=== PATIENT | male | born 1980 | race Caucasian/White ===

== ENCOUNTER 2016-12-14 08:38 | Emergency (ER) | payer OTHER ==
--- NOTE | 2016-12-14 09:08 | XR ---
EXAMINATION TYPE: XR finger LT DATE OF EXAM: 12/14/2016 CLINICAL HISTORY: pain Left fourth digit. TECHNIQUE: 3 views of the left fourth digit are submitted. COMPARISON: None FINDINGS: Comminuted and displaced fracture involving the base and proximal portion of the distal pha lanx left fourth digit. Associated soft tissue injury with open fracture component seen. No evidence for radiopaque foreign body or additional fracture at this time. IMPRESSION: Comminuted and displaced open fracture left fourth digit.
[2016-12-14] MEDS ORDERED: ceFAZolin 1,000 MG VIAL IM STA (09:16)
[2016-12-14] MEDS ORDERED: DIPH,PERTUS(ACELL)TETVAC-LF 0.5 ML VIAL IM ONE (09:16)
--- NOTE | 2016-12-14 09:54 | ED ---
General Adult HPI - General Chief complaint: Wound/Laceration Stated complaint: [facility] Finger amputation Time Seen by Provider: 12/14/16 08:44 Source: patient, RN notes reviewed Mode of arrival: wheelchair Limitations: no limitations - History of Present Illness Initial comments: 36 yo female presents to the ER with cc of left finger laceration. Patient cut it with a tremor at work. Patient states that he is having pain to the finger. Patient states he does not have range motion of the distal finger. Patient denies any other injury from the incident. Patient states his pain is moderate there is no radiation.Patient denies any recent fever, chills, shortness of breath, chest pain, back pain, abdominal pain, nausea vomiting, numbness or tingling, dysuria or hematuria, constipation or diarrhea, headaches or visual changes, or any other current symptoms. - Related Data Previous Rx's Medication Instructions Recorded Cephalexin [Keflex] 500 mg PO Q6HR #40 cap 12/14/16 Allergies Allergy/AdvReac Type Severity Reaction Status Date / Time No Known Allergies Allergy Verified 12/14/16 08:43 Review of Systems ROS Statement: Those systems with pertinent positive or pertinent negative responses have been documented in the HPI. ROS Other: All systems not noted in ROS Statement are negative. Past Medical History Past Medical History: No Reported History History of Any Multi-Drug Resistant Organisms: None Reported Additional Past Surgical History / Comment(s): nose shopulder thumb Past Psychological History: No Psychological Hx Reported Smoking Status: Former smoker Past Alcohol Use History: None Reported Past Drug Use History: None Reported General Exam - General Exam Comments Initial Comments: General: The patient is awake and alert, in no distress, and does not appear acutely ill. Neck: The neck is supple, there is no tenderness. Cardiovascular: There is a regular rate and rhythm. No murmur, rub or gallop is appreciated. Respiratory: Lungs are clear to auscultation, respirations are non-labored, breath sounds are equal. No wheezes, stridor, rales, or rhonchi. Musculoskeletal: Patient does have decreased sensation distally to the tip of the left ring finger. There is a in total 3.5 cm laceration to the distal aspect of the left finger that is stellate in nature. Patient does not have range of motion at the DIP joint there is no strength testing at the DIP joint. Patient's range of motion the PIP joint of the ring finger at the left hand. Normal exam otherwise to the left hand besides the left ring finger. Neurological: CN II-XII intact, There are no obvious motor or sensory deficits. Coordination appears grossly intact. Speech is normal. Skin: Skin is warm and dry and no rashes or lesions are noted. Psychiatric: Normal mood and affect. Limitations: no limitations Course Vital Signs 12/14/16 08:40 Temperature 97 F L Pulse Rate 137 H Respiratory 24 Rate Blood Pressure 180/77 O2 Sat by Pulse 100 Oximetry Procedures - Procedures Initial comment: The skin was anesthetized with 1% lidocaine. The laceration was then cleansed with Betadine and irrigated with normal saline. The wound was inspected, and is an open fracture as well as compound injury to the left ring finger including the tendon is lacerated. There is a suspected nerve injury as well No foreign body was noted in the wound. A total of 9 skin sutures were placed utilizing 5- 0 nylon to 3.5; laceration to the left ring finger - Orthopedic Splinting/Casting Injury #1 Side: left Upper Extremity Injury Location: finger Upper Extremity Immobilizer: aluminum form splint Medical Decision Making - Medical Decision Making 36-year-old male presents for left ring finger laceration and open fracture. He was given antibiotics and was thoroughly irrigated. We did discuss that there is tenderness of nerve damage. We did discuss he could lose the tip of the finger as well as other possible outcomes. We did discuss he needs to have close follow-up with hand. He was paced in a splint after suture repair. We discussed return parameters and all his questions. They stated they understood and they are in agreement with plan. This time the patient will be discharged home. Disposition Clinical Impression: Laceration of left ring finger with tendon involvement, Fracture of phalanx of left ring finger, Open fracture Disposition: HOME SELF-CARE Condition: Stable Instructions: Laceration (ED), Care For Your Stitches (ED), Finger Fracture (ED ) Additional Instructions: Please use medication as discussed. Please follow up with family doctor if symptoms have not improved over the next two days. Please return to the emergency room if your symptoms increase or worsen or for any other concerns. Prescriptions: Cephalexin [Keflex] 500 mg PO Q6HR #40 cap Referrals: Samy Padilla DO [Doctor of Osteopathic Medicine] - 1-2 days Time of Disposition: 09:54
[2016-12-14 10:04] VITALS: BP 129/76; PULSE 98; RESP 16; TEMP 97.3
[2016-12-14] MEDS ORDERED: HYDROcodone/APAP 5-325MG 1 EACH TAB PO STA (10:37)
== END 2016-12-14 10:43 | disposition home or self-care (01) ==
LOC: EC 08:38
DX: S62.635B Displaced fracture of distal phalanx of left ring finger, initial encounter for open fracture (principal); S61.215A Laceration without foreign body of left ring finger without damage to nail, initial encounter; Z87.891 Personal history of nicotine dependence; W26.8XXA Contact with other sharp object(s), not elsewhere classified, initial encounter; Y99.0 Civilian activity done for income or pay; Y92.69 Other specified industrial and construction area as the place of occurrence of the external cause
CPT/HCPCS: 99283; 12002; 90471; 96372; 73140; 90715; J0690

== ENCOUNTER → 2016-12-16 | Outpatient (CLI) | payer SELFPAY ==
[2016-12-16 10:41] LABS: Basophils % (A) 0 %; CH 31.5; Eosinophils # (A) 0.4 k/uL (0-0.7); Eosinophils % (A) 5 %; HCT 44.6 % (39.0-53.0); HDW 2.21; HGB 14.7 gm/dL (13.0-17.5); Luc # (Auto) 0.16; Luc % (Auto) 2; Lymphocytes # (A) 1.9 k/uL (1.0-4.8); Lymphocytes % (A) 23 %; MCH 31.6 pg (25.0-35.0); MCV 95.8 fL (80.0-100.0); Mean Platelet Volume 6.9; Monocytes # (A) 0.6 k/uL (0-1.0); Monocytes % (A) 7 %; Neutrophils # (A) 5.4 k/uL (1.3-7.7); Neutrophils % (A) 64 %; RBC 4.65 m/uL (4.30-5.90); RDW 12.4 % (11.5-15.5); WBC 8.5 k/uL (3.8-10.6); WBC (Perox) 8.22
== END | disposition home or self-care (01) ==
LOC: LABWHC1 09:52
PROVIDERS: ATTEND Orthopaedic Surgery
DX: Z01.812 Encounter for preprocedural laboratory examination (principal); S62.635D Displaced fracture of distal phalanx of left ring finger, subsequent encounter for fracture with routine healing
CPT/HCPCS: 36415; 85025

== ENCOUNTER 2016-12-17 09:29 | Day surgery (SDC) | payer OTHER ==
[2016-12-16 09:28] VITALS: BMI 22.1
--- NOTE | 2016-12-17 07:32 | P.HPOR ---
History of Present Illness H&P Date: 12/17/16 Chief Complaint: Left ring finger fracture 36-year-old patient seen after injury to his left ring finger. I recommended surgical intervention. I discussed procedure, risks and complications. Patient was agreeable and consent was obtained. Past Medical History Past Medical History: No Reported History Additional Past Medical History / Comment(s): LEFT RING FINGER LACERATION AND FX. SUTURED, CURRENTLY BANDAGED History of Any Multi-Drug Resistant Organisms: None Reported Additional Past Surgical History / Comment(s): NASAL SX FOR FX, shoulder BONE SPURS, thumb Past Anesthesia/Blood Transfusion Reactions: No Reported Reaction Smoking Status: Former smoker - Past Family History Mother Family Medical History: No Reported History Medications and Allergies Allergies Allergy/AdvReac Type Severity Reaction Status Date / Time No Known Allergies Allergy Verified 12/16/16 09:21 Physical Examination Osteopathic Statement: *. No significant issues noted on an osteopathic structural exam other than those noted in the History and Physical/Consult. Evaluation of the left ring finger reveals a laceration along the distal phalanx area. It is well proximal nylon suture. There was good perfusion distally. There is no evidence for nailbed involvement. There is some decreased light touch noted on the ulnar side distally. The patient is able to slightly flex the DIP joint. There is good flexion of the PIP and MP joints. Results X-ray of the left ring finger: Displaced/comminuted distal phalanx fracture Assessment and Plan Plan: Assessment: Displaced/comminuted distal femoral fracture left ring finger with laceration Plan: Irrigation debridement left ring finger with closed reduction for cutaneous pinning distal phalanx left ring finger Time with Patient: Less than 30
[~2016-12-17 09:29] MED LIST: DEXAMETHASONE SOD PHOSPHATE 10 MG/ML 1 ML VIAL IV ONE; LACTATED RINGERS 1,000 ML IV SCH; MIDAZOLAM 2 MG/2 ML VIAL IV PRN; ONDANSETRON 4 MG/2 ML VIAL IVP ONE; ceFAZolin 1,000 MG in DEXTROSE/WATER 1 50ML.BAG IV ONE
[2016-12-17] MEDS ORDERED: LIDOCAINE 1% 20 ML VIAL (10MG/ML) FOR IV START INTRADERMA ONE (10:50)
[2016-12-17] MEDS ORDERED: MIDAZOLAM 2 MG/2 ML VIAL ONE (11:33)
[2016-12-17] MEDS ORDERED: PROPOFOL 10 MG/ML 20 ML VIAL IV ONE (11:33)
[2016-12-17] MEDS ORDERED: MORPHINE SULFATE 10 MG/ML SYRINGE ONE (11:33)
[2016-12-17] MEDS ORDERED: ceFAZolin 1,000 MG in SODIUM CHLORIDE 0.9% 1,000 ML IRRIGATION ONE (11:33)
[2016-12-17] MEDS ORDERED: LIDOCAINE 1% INJ 10MG/ML (20 ML MDV) ONE (11:33)
[2016-12-17] MEDS ORDERED: KETOROLAC 30 MG/ML 1 ML VIAL ONE (11:33)
[2016-12-17] MEDS ORDERED: fentaNYL (PF) 50 MCG/ML 2 ML AMP ONE (11:33)
[2016-12-17] MEDS ORDERED: SODIUM CHLORIDE 0.9% 50 ML with ceFAZolin 1,000 MG IV ONE ×2 (11:54)
[2016-12-17] MEDS ORDERED: BUPIVACAINE (PF) 0.25% 30 ML VIAL SQ ONE ×2 (11:54→12:26)
--- NOTE | 2016-12-17 12:38 | P.OP ---
Date of Procedure: 12/17/16 Preoperative Diagnosis: 1. Comminuted/displaced distal phalanx fracture left ring finger 2. Complex laceration distal phalanx area left ring finger Postoperative Diagnosis: Same Procedure(s) Performed: 1. Open reduction and percutaneous pinning distal fillings fracture left ring finger 2. Irrigation with debridement and secondary closure complex laceration left ring finger Implants: 0.35 K wire Anesthesia: BENI, local Surgeon: Samy Padilla Estimated Blood Loss (ml): 10 Pathology: none sent Condition: stable Disposition: PACU Indications for Procedure: 28-year-old patient seen with a comminuted displaced distal phalanx fracture left ring finger along with a complex laceration. I recommended reduction with percutaneous pinning as well as irrigation debridement and secondary closure of the laceration. Patient was agreeable and consent was obtained. Operative Findings: See description of procedure Description of Procedure: The patient was taken to the operative suite. Patient underwent a general anesthetic by the department of anesthesia. The left upper extremity was prepped and draped in the normal sterile orthopedic fashion. I removed the previous stitches and explored the complex laceration. The complex laceration of all of the distal talus area left ring finger and measured approximately overall length as it was stellate 4 cm. I explored the wound and removed some fragments of bone I encountered. I now sharply excised some macerated tissue with a #15 blade. I irrigated the wound out copiously with antibiotic irrigant. I explored the wound once again and there was no residual necrotic or abnormal-appearing tissue. I now introduced a 0.35 K wire through the distal portion of the distal fragments. Under direct visualization I introduced at into the more proximal aspect. The fracture was very comminuted but I felt we had a reasonable alignment. This was confirmed on AP and lateral intraoperative imaging. I didn't drive the K wire through the DIP joint to help with stability. I again confirmed adequate alignment under AP and lateral intraoperative imaging. Spot films were obtained to document this. I now repaired this complex laceration loosely with 4-0 nylon. There was good perfusion noted distally. The K wire was clipped and a Jurgan ball was attached. I performed a digital block with quarter percent plain Marcaine. I applied sterile dressings. No tourniquet was utilized. The patient was awakened and transferred to recovery stable condition.
[2016-12-17 12:47] VITALS: TEMP 98
--- NOTE | 2016-12-17 12:51 | XR ---
Left finger HISTORY: Open reduction internal fixation for posttraumatic fracture Limited intraoperative C-arm images document the procedure
[2016-12-17] MEDS: HYDROmorphone 1 MG/ML 1 ML SYRINGE IVP PRN ×4 (12:53→13:08)
--- NOTE | 2016-12-17 13:14 | FL ---
Fluoroscopy HISTORY: Fracture 32 seconds fluoroscopy time supplied to the referring clinician. 2 intraoperative C-arm images docum ent the procedure. See dictated report from orthopedic surgery.
[2016-12-17] MEDS: fentaNYL (PF) 50 MCG/ML 2 ML AMP IVP ONE ×2 (13:19→13:23)
[2016-12-17 13:29] VITALS: RESP 16
[2016-12-17] MEDS: HYDROmorphone 1 MG/ML 1 ML SYRINGE IVP ONE ×2 (13:30→13:35)
[2016-12-17] MEDS ORDERED: LACTATED RINGERS 1,000 ML IV ONE (13:50)
[2016-12-17] MEDS ORDERED: HYDROcodone/APAP 10-325MG 1 EACH TAB PO ONE (14:18)
[2016-12-17 14:40] VITALS: BP 114/62; PULSE 71
== END 2016-12-17 15:30 | disposition home or self-care (01) ==
LOC: OR 09:29
PROVIDERS: ATTEND Orthopaedic Surgery
DX: S62.635B Displaced fracture of distal phalanx of left ring finger, initial encounter for open fracture (principal); S61.215A Laceration without foreign body of left ring finger without damage to nail, initial encounter; X58.XXXA Exposure to other specified factors, initial encounter; Z87.891 Personal history of nicotine dependence; Z79.2 Long term (current) use of antibiotics; Z79.891 Long term (current) use of opiate analgesic
CPT/HCPCS: 73140; 26765; 11012; C1713; J2250; J1100; J2270; J2405; J0690 ×2; J2001; J3010; J1885; J1170; J2704

== ENCOUNTER 2023-11-25 11:38 | Inpatient (IN) | payer BC, OTHER ==
[2023-11-25 12:08] LABS: Basophils % (A) 1 %; Eosinophils # (A) 0.1 k/uL (0-0.7); Eosinophils % (A) 2 %; HCT 44.2 % (39.0-53.0); HGB 15.1 gm/dL (13.0-17.5); Lymphocytes # (A) 0.8 k/uL (1.0-4.8); Lymphocytes % (A) 19 %; MCH 35.3 pg (25.0-35.0); MCHC 34.1 g/dL (31.0-37.0); MCV 103.5 fL (80.0-100.0); Macrocytosis Slight; Mean Platelet Volume 7.7; Monocytes # (A) 0.3 k/uL (0-1.0); Monocytes % (A) 7 %; Neutrophils # (A) 2.8 k/uL (1.3-7.7); Neutrophils % (A) 70 %; Platelet Count 112 k/uL (150-450); RBC 4.27 m/uL (4.30-5.90); RDW 13.9 % (11.5-15.5)
[2023-11-25] MEDS: SODIUM CHLORIDE 0.9% 1,000 ML IV STA ×2 (12:10)
[2023-11-25] MEDS: LORazepam 2 MG/ML INJ IV PRN ×3 (12:10→18:17)
[2023-11-25] MEDS: ONDANSETRON 4 MG/2 ML VIAL IVP STA (12:11)
[2023-11-25] MEDS: PANTOPRAZOLE 40 MG/10 ML VIAL IVP STA (12:12)
[2023-11-25] MEDS: THIAMINE 100 MG/ML 2 ML VIAL IM STA (12:13)
[2023-11-25 12:22] LABS: ALT 162 U/L (4-49); AST 573 U/L (17-59); African American GFR (CKD) >90 (>60 ml/min/1.73 sqM); Albumin 4.3 g/dL (3.5-5.0); Alkaline Phosphatase 87 U/L (38-126); Amylase 83 U/L (30-110); Anion Gap 12 mmol/L; Blood Urea Nitrogen 9 mg/dL (9-20); Calcium 8.2 mg/dL (8.4-10.2); Carbon Dioxide 27 mmol/L (22-30); Chloride 100 mmol/L (98-107); Glucose 104 mg/dL (74-99); Lipase 1530 U/L (23-300); Non-African American GFR(CKD) >90 (>60 ml/min/1.73 sqM); Potassium 4.1 mmol/L (3.5-5.1); Sodium 139 mmol/L (137-145); Total Bilirubin 0.7 mg/dL (0.2-1.3); Total Protein 6.3 g/dL (6.3-8.2)
[2023-11-25 12:29] LABS: INR 0.9 (<1.2); Partial Thromboplastin Time 22.2 sec (22.0-30.0); Prothrombin Time 9.8 sec (10.0-12.5)
[2023-11-25 12:45] LABS: Alcohol 316 mg/dL
--- NOTE | 2023-11-25 13:54 | CT ---
EXAMINATION TYPE: CT abdomen pelvis w con CT DLP: 562.1 mGycm, Automated exposure control for dose reduction was used. DATE OF EXAM: 11/25/2023 1:45 PM COMPARISON: None CLINICAL INDICATION:Male, 43 years old with history of pancreatitis; Pancreatitis TECHNIQUE: Standard CT of the abdomen and pelvis following the administration of 100 cc of Isovue 3 00 IV contrast material. Coronal and sagittal reformats were performed. FINDINGS: LOWER CHEST: Unremarkable ABDOMEN LIVER: Diffusely hypoattenuating parenchyma. GALLBLADDER AND BILE DUCTS: The gallbladder is mildly distended without surrounding inflammatory hong ges. Intrahepatic and extrahepatic biliary ductal dilatation with the common bile duct measuring up t o 1.5 cm. There is tapering to the pancreatic head. PANCREAS: Unremarkable appearance without pancreatic ductal dilatation. No surrounding fluid collecti ons or fasting identified. Enhances homogeneously. SPLEEN: Unremarkable. ADRENAL GLANDS: Unremarkable. KIDNEYS AND URETERS: No evidence of hydronephrosis or renal calculus. The kidneys enhance symmetrical ly. Contrast is demonstrated within both collecting systems on the delayed phase. PELVIS BLADDER: Moderately distended. REPRODUCTIVE: Unremarkable. ABDOMEN & PELVIS STOMACH AND BOWEL: Stomach and duodenum are unremarkable. No focal bowel wall thickening or surround ing inflammatory changes. Moderate amount of stool present within the distal colon and rectum. The ap pendix is not definitely identified. No surrounding inflammatory changes within the right lower quadr ant. No evidence of bowel obstruction. PERITONEUM: No evidence of pneumoperitoneum or free fluid. VASCULATURE: No evidence of aortic aneurysm. Portal venous system is patent. MUSCULOSKELETAL: No acute osseous abnormalities LYMPH NODES: No gross evidence for lymphadenopathy. SOFT TISSUE/ABDOMINAL WALL: Unremarkable IMPRESSION: 1. Dilated intrahepatic and extrahepatic biliary duct dilatation with tapering to the pancreatic hea d. Correlation with obstructive biliary labs is recommended. Consider MRCP/ERCP for further evaluatio n. 2. No CT evidence for pancreatic inflammatory changes at this time. No surrounding organized fluid co llections. 3. Hepatic steatosis.
[2023-11-25 14:30] LABS: Appearance,Urine Clear (Clear); Bilirubin,Urine Negative (Negative); Blood,Urine Negative (Negative); Color,Urine Colorless; Glucose,Urine (UA) Negative (Negative); Ketones,Urine Negative (Negative); Leukocyte Esterase,Urine Negative (Negative); Nitrite,Urine Negative (Negative); PH, Urine 6.5 (5.0-8.0); Protein,Urine Trace (Negative); Specific Gravity,Urine 1.012 (1.001-1.035); Urobilinogen,Urine <2.0 mg/dL (<2.0)
--- NOTE | 2023-11-25 14:32 | ED ---
General Adult HPI - General Chief complaint: Alcohol Stated complaint: Detox Time Seen by Provider: 11/25/23 11:39 Source: patient, EMS, RN notes reviewed, old records reviewed Mode of arrival: EMS Limitations: no limitations - History of Present Illness Initial comments: Patient is a 43-year-old male who presents emergency department complaining of abdominal pain and alcohol withdrawals. Has a history of heavy alcohol abuse. Does have a history of DTs. Presented with withdrawal-like symptoms. Last drink earlier this morning. Does have a history of withdrawals with seizures. Attempted to go to [facility] however they sent him here for detox as the patient seem too sick for them to manage. Endorses some epigastric abdomin al discomfort, nausea, vomiting. Endorses withdrawal symptoms. Presents for further evaluation at this time. - Related Data Home Medications Medication Instructions Recorded Confirmed No Known Home Medications 11/25/23 11/25/23 Allergies Allergy/AdvReac Type Severity Reaction Status Date / Time No Known Allergies Allergy Verified 11/25/23 12:24 Review of Systems ROS Statement: Those systems with pertinent positive or pertinent negative responses have been documented in the HPI. Review of Systems: CONST: Denies fever EYES: Denies blurry vision ENT: Denies nasal congestion C/V: Denies Chest pain RESP: Denies shortness of breath GI: Endorses abdominal pain : Denies dysuria SKIN: Denies rash. MSK: Denies joint pain. NEURO: Denies headache ROS Other: All systems not noted in ROS Statement are negative. Past Medical History Past Medical History: No Reported History Additional Past Medical History / Comment(s): LEFT RING FINGER LACERATION AND FX. SUTURED, CURRENTLY BANDAGED History of Any Multi-Drug Resistant Organisms: None Reported Additional Past Surgical History / Comment(s): NASAL SX FOR FX, shoulder BONE SPURS, thumb Past Anesthesia/Blood Transfusion Reactions: No Reported Reaction Past Psychological History: No Psychological Hx Reported, Anxiety, Depression Smoking Status: Vaper Past Alcohol Use History: Abuse, Heavy Past Drug Use History: Marijuana - Past Family History Mother Family Medical History: No Reported History General Exam - General Exam Comments Initial Comments: General: Appears in no acute distress. HEAD: Normal with no signs of head trauma. EYES: PERRLA, EOMI, conjunctiva normal, no discharge. ENT: Hearing grossly intact, normal oropharynx. RESPIRATORY: Clear breath sounds bilaterally. No wheezes, rales, or rhonchi. C/V: Regular rate and rhythm. S1 and S2 auscultated, no edema, peripheral pulses 2+ and intact throughout ABD: Abdomen soft, nondistended. Tender to palpation epigastric region. No guarding or rebound tenderness. EXT: Normal range of motion, no obvious deformity SKIN: No rashes or lesions observed on exposed skin. NEURO: Alert and oriented x 4. Patient appears to be withdrawing from alcohol. Also appears acutely intoxicated with alcohol. Limitations: no limitations Course Vital Signs 11/25/23 11/25/23 11/25/23 11:41 12:40 14:11 Temperature 98.7 F Pulse Rate 101 H 80 75 Respiratory 18 18 16 Rate Blood Pressure 134/117 107/62 107/62 O2 Sat by Pulse 97 97 Oximetry Medical Decision Making - Medical Decision Making Was pt. sent in by a medical professional or institution (, PA, SCRAP CUTTER, urgent care, hospital, or snf...) When possible be specific @ -[facility] for [facility] Did you speak to anyone other than the patient for history (EMS, parent, family, police, friend...)? What history was obtained from this source @ -No Did you review nursing and triage notes (agree or disagree)? Why? @ -I reviewed and agree with nursing and triage notes Were old charts reviewed (outside hosp., previous admission, EMS record, old EKG, old radiological studies, urgent care reports/EKG's, snf records)? Report findings @ -No old charts were reviewed Differential Diagnosis (chest pain, altered mental status, abdominal pain women, abdominal pain men, vaginal bleeding, weakness, fever, dyspnea, syncope, headache, dizziness, GI bleed, back pain, seizure, CVA, palpatations, mental health, musculoskeletal)? @ -Alcohol withdrawals, dehydration, pancreatitis. This list is not all inclusive. EKG interpreted by me (3pts min.). @ -As above X-rays interpreted by me (1pt min.). @ -None done CT interpreted by me (1pt min.). @ -CT abdomen pelvis remarkable for dilated intrahepatic and extrahepatic biliary ducts with clinical correlation recommended. No evidence of obstructive biliary labs on lab work. No significant pancreatic inflammation. U/S interpreted by me (1pt. min.). @ -None done What testing was considered but not performed or refused? (CT, X-rays, U/S, labs)? Why? @ -None What meds were considered but not given or refused? Why? @ -None Did you discuss the management of the patient with other professionals (professionals i.e. , PA, SCRAP CUTTER, lab, RT, psych nurse, director of social work, ekg technician, teacher, sheriffs officer, ed case manager)? Give summary @ -Discussed with [facility] who accepted the admission. We did discuss the CT results and despite us not having GI present, as the patient has no obstructive biliary labs, they still accepted the patient at this time. Was smoking cessation discussed for >3mins.? @ -No Was critical care preformed (if so, how long)? @ -No Were there social determinants of health that impacted care today? How? (Homelessness, low income, unemployed, alcoholism, drug addiction, transportation, low edu. Level, literacy, decrease access to med. care, usp, rehab)? @ -No Was there de-escalation of care discussed even if they declined (Discuss DNR or withdrawal of care, Hospice)? DNR status @ -No What co-morbidities impacted this encounter? (DM, HTN, Smoking, COPD, CAD, Cancer, CVA, ARF, Chemo, Hep., AIDS, mental health diagnosis, sleep apnea, morbid obesity)? @ -None Was patient admitted / discharged? Hospital course, mention meds given and route, prescriptions, significant lab abnormalities, going to OR and other pertinent info. @ -Based on the patient's presentation and physical exam, presents for alcohol intoxication withdrawals. Initial CIWA was elevated was administered Ativan in addition IV fluids, Zofran, fluids, Protonix. We will obtain abdominal workup. Vital signs within acceptable limits. Labs remarkable for elevated lipase. Elevated alcohol level at 316. Remainder the workup relatively unremarkable. We did obtain CT imaging due to the elevated lipase which shows nonspecific findings of the dilated hepatic ducts however patient has a normal bilirubin as well as a normal alk phos. Patient does have slightly elevated ALT but elevated AST which could be all secondary to his alcohol abuse. On reevaluation I asked evaluate the patient. I did recommend admission. He was in agreement this plan. CIWA was improved at this time. I spoke with the admitting team, [facility] who after discussion with members of her group accepted the patient. We do not have GI but we did discuss the CT results as well as the absence of the obstructive biliary labs. They were in agreement with plan for admission to their service at this time. Will continue with IV fluids as well as CIWA protocol. Undiagnosed new problem with uncertain prognosis? @ -No Drug Therapy requiring intensive monitoring for toxicity (Heparin, Nitro, Insulin, Cardizem)? @ -No Were any procedures done? @ -No Diagnosis/symptom? @ -Alcohol withdrawals, alcohol intoxication, pancreatitis Acute, or Chronic, or Acute on Chronic? @ -Acute Uncomplicated (without systemic symptoms) or Complicated (systemic symptoms)? @ -Complicated Side effects of treatment? @ -No Exacerbation, Progression, or Severe Exacerbation? @ -No Poses a threat to life or bodily function? How? (Chest pain, [place], [place], pneumonia, PE, COPD, DKA, ARF, appy, cholecystitis, CVA, Diverticulitis, Homicidal, Suicidal, threat to staff... and all critical care pts) @ -Yes - Lab Data Result diagrams: 11/25/23 11:52 11/25/23 11:52 Lab Results 11/25/23 11/25/23 11/25/23 Range/Units 11:52 11:52 11:52 WBC 4.0 (3.8-10.6) k/uL RBC 4.27 L (4.30-5.90) m/uL Hgb 15.1 (13.0-17.5) gm/dL Hct 44.2 (39.0-53.0) % MCV 103.5 H (80.0-100.0) fL MCH 35.3 H (25.0-35.0) pg MCHC 34.1 (31.0-37.0) g/dL RDW 13.9 (11.5-15.5) % Plt Count 112 L (150-450) k/uL MPV 7.7 Neutrophils % 70 % Lymphocytes % 19 % Monocytes % 7 % Eosinophils % 2 % Basophils % 1 % Neutrophils # 2.8 (1.3-7.7) k/uL Lymphocytes # 0.8 L (1.0-4.8) k/uL Monocytes # 0.3 (0-1.0) k/uL Eosinophils # 0.1 (0-0.7) k/uL Basophils # 0.0 (0-0.2) k/uL Macrocytosis Slight PT 9.8 L (10.0-12.5) sec INR 0.9 (<1.2) APTT 22.2 (22.0-30.0) sec Sodium 139 (137-145) mmol/L Potassium 4.1 (3.5-5.1) mmol/L Chloride 100 (98-107) mmol/L Carbon Dioxide 27 (22-30) mmol/L Anion Gap 12 mmol/L BUN 9 (9-20) mg/dL Creatinine 0.53 L (0.66-1.25) mg/dL Est GFR (CKD-EPI)AfAm >90 (>60 ml/min/1.73 sqM) Est GFR (CKD-EPI)NonAf >90 (>60 ml/min/1.73 sqM) Glucose 104 H (74-99) mg/dL Calcium 8.2 L (8.4-10.2) mg/dL Total Bilirubin 0.7 (0.2-1.3) mg/dL AST 573 H (17-59) U/L ALT 162 H (4-49) U/L Alkaline Phosphatase 87 (38-126) U/L Total Protein 6.3 (6.3-8.2) g/dL Albumin 4.3 (3.5-5.0) g/dL Amylase 83 (30-110) U/L Lipase 1530 H (23-300) U/L Serum Alcohol 316 H* mg/dL - EKG Data -: EKG Interpreted by Me EKG Comments: 12-lead Electrocardiogram Interpretation Note EKG was reviewed and interpreted by myself. 12-lead ECG performed at 1151 is interpreted by me as revealing normal sinus rhythm at a rate of 99 beats per minute. Dailey is normal. AK interval is 131 ms, QRS duration is 92 ms, QTc is 407 ms.. There were no ST or T wave abnormalities to suggest myocardial ischemia or injury. R wave progression across the precordium was satisfactory. By my interpretation this EKG is non-diagnostic for acute ischemia. Disposition Clinical Impression: Alcoholic intoxication, Alcohol withdrawal syndrome, Pancreatitis Disposition: ADMITTED IP TO THIS HOSP Condition: Stable Referrals: Martínez Alva MD [Primary Care Provider] - 1-2 days Time of Disposition: 14:34
[2023-11-25] MEDS ORDERED: NALOXONE 0.4 MG/ML 1 ML VIAL IV PRN (14:34)
[2023-11-25] MEDS ORDERED: IBUPROFEN 400 MG TAB PO PRN (14:34)
[2023-11-25] MEDS ORDERED: ONDANSETRON 4 MG/2 ML VIAL IVP PRN (14:34)
[2023-11-25] MEDS ORDERED: LORazepam 0.5 MG TAB PO PRN (15:30)
[2023-11-25] MEDS ORDERED: PROCHLORPERAZINE INJ 10 MG/2 ML VIAL IVP PRN (15:32)
[2023-11-25] MEDS ORDERED: MORPHINE SULFATE 4 MG/ML SYRINGE IV PRN (15:46)
--- NOTE | 2023-11-25 15:58 | P.HPIM ---
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 He presented to the emergency department from [place] with a chief complaint of abdominal pain and alcohol intoxication with feeling of impending withdrawal. Patient reports abdominal pain to epigastric region accompanied by nausea and vomiting. He reports history of severe DTs and alcohol withdrawal seizures with last drink of alcohol being this morning, but states drinking at least 24 beers and a fifth of liquor daily every day for at least the last 4 months. Patient reports it has been over 4 months since the last time he went 24 hours without alcohol. Denies having any fevers, chills, diaphoresis, chest pain, palpitations, shortness of breath, cough or congestion, hematemesis, or experiencing any difficulties with or changes in his urinary or bowel function. Upon arrival to our facility, patient underwent evaluation in the emergency department. Vital signs upon arrival show blood pressure 134/117, heart rate 101, respiratory rate 18, temp 98.7 F, and SpO2 of 97% on room air. Labs were completed and reviewed. CBC showing macrocytosis with MCV of 103.5 and MCH of 35.3 and thrombocytopenia with platelet count of 112,000. Coagulation profile showing low PT of 9.8 otherwise normal findings. BMP unremarkable. Blood glucose 104. Liver profile showing bilirubin of 0.7, AST of 573, ALT of 162, and alkaline phosphatase of 87. Amylase normal findings at 83 and lipase was elevated at 1530. CT abdomen and p flaca was completed showing hepatic steatosis with dilated intrahepatic and extrahepatic biliary duct dilation with tapering into the pancreatic head and no CT evidence for pancreatic inflammatory changes with no surrounding organized fluid collections. Patient being admitted under our services for alcohol intoxication pending withdraw, acute alcoholic hepatitis, and acute alcoholic pancreatitis. Review of systems: Pertinent positives and negatives as discussed in HPI, a complete review of systems was performed and all other systems are negative. Physical exam: Vital signs reviewed and stable. General: Nontoxic, no distress and appears stated age. Derm: Skin warm and dry, normal coloration for ethnicity. Head: Atraumatic, normocephalic and symmetric. Eyes: EOMs intact, no lid lag, and anicteric sclera Mouth: no lip lesions, mucus membranes moist Cardiovascular: regular rate and rhythm with normal S1S2, no murmur, positive posterior tibial pulses bilaterally, and cap refill < 2 seconds. Lungs: Respirations even, regular, and unlabored on room air. Lungs CTA bilaterally, no rhonchi, no rales, no wheezing, and no accessory muscle usage. Abdominal: soft, tenderness reported upon palpation to epigastric region, no tenderness reported to right upper quadrant, no guarding, no appreciable organomegaly Ext: ROM intact. No gross muscle atrophy, no edema, no contractures Neuro: Speech clear, face symmetrical and CN II-XII grossly intact with no noted focal neuro deficits Psych: Alert and oriented to person, place, time, and situation. Appropriate and pleasant affect. Assessment and Plan of Care: Alcoholic hepatitis Alcohol intoxication in active alcoholic Acute alcoholic pancreatitis Hepatic steatosis with intrahepatic and extrahepatic biliary duct dilation tapering into the pancreatic head Substance abuse with reports of daily excessive kratom abuse Transaminitis, secondary to daily alcohol abuse Macrocytosis, secondary to daily alcohol abuse Thrombocytopenia, secondary to daily alcohol abuse -Order placed for monitoring of CIWA scores and patient to be medicated with Ativan 0.5 mg every 4 hours as needed for CIWA score of 4-5, Ativan 1 mg every 4 hours for CIWA score of 6-7, Ativan 2 mg every 3 hours CIWA score of 8-9, and Ativan 2 mg every 2 hours forr CIWA score of 10 or greater. -Order placed for MRCP -Continuous IV hydration with Lactated Ringer's at 125 cc/h. -Compazine 10 mg IVP every 6 hours as needed for nausea/vomiting -Toradol 15 mg IVP every 6 hours as needed for mild to moderate pain and morphine 4 mg every 4 hours as needed for severe pain. -Thiamine 100 mg daily, and Multivitamin daily, and Folate 1 mg daily -Seizure, fall, aspiration, and elopement precautions in place. -Urine drug screen -Continued close monitoring of electrolytes and replace as needed. -Repeat morning CMP to follow-up on elevated liver enzymes, monitor for improvement -Telemetry monitoring. Data and imaging reviewed: As stated above in HPI The patient is admitted with an anticipated greater than 2 midnight stay for evaluation of alcoholic hepatitis, alcoholic pancreatitis, and alcohol withdraw CODE STATUS: Full code DVT prophylaxis: Lovenox Anticipated discharge date: Pending clinical course Anticipated discharge place: Home/return to [place] Patient was seen independently by Nurse Practitioner. This document was prepared using [employer] dictation software. Please allow for errors in flame hardening machine setter while rare they do occur. I reviewed the documentation as provided by the MERRITT above, who is the original author of this note. I agree with the documented assessment and plan, with the following changes: none Past Medical History Past Medical History: No Reported History Additional Past Medical History / Comment(s): LEFT RING FINGER LACERATION AND FX. SUTURED, CURRENTLY BANDAGED History of Any Multi-Drug Resistant Organisms: None Reported Additional Past Surgical History / Comment(s): NASAL SX FOR FX, shoulder BONE SPURS, thumb Past Anesthesia/Blood Transfusion Reactions: No Reported Reaction Past Psychological History: No Psychological Hx Reported, Anxiety, Depression Smoking Status: Vaper Past Alcohol Use History: Abuse, Heavy Past Drug Use History: Marijuana - Past Family History Mother Family Medical History: No Reported History Medications and Allergies Home Medications Medication Instructions Recorded Confirmed Type No Known Home Medications 11/25/23 11/25/23 History Allergies Allergy/AdvReac Type Severity Reaction Status Date / Time No Known Allergies Allergy Verified 11/25/23 12:24 Physical Exam Vitals: Vital Signs Temp Pulse Resp BP Pulse Ox 11/25/23 14:11 75 16 107/62 11/25/23 12:40 80 18 107/62 97 11/25/23 11:41 98.7 F 101 H 18 134/117 97 Intake and Output 11/25/23 11/25/23 11/25/23 06:59 14:59 22:59 Other: Weight 61.235 kg Results CBC & Chem 7: 11/29/23 05:47 11/29/23 05:47 Labs: Abnormal Lab Results - Last 24 Hours (Table) 11/25/23 11/25/23 11/25/23 Range/Units 11:52 11:52 11:52 RBC 4.27 L (4.30-5.90) m/uL MCV 103.5 H (80.0-100.0) fL MCH 35.3 H (25.0-35.0) pg Plt Count 112 L (150-450) k/uL Lymphocytes # 0.8 L (1.0-4.8) k/uL PT 9.8 L (10.0-12.5) sec Creatinine (0.66-1.25) mg/dL Glucose (74-99) mg/dL Calcium (8.4-10.2) mg/dL AST (17-59) U/L ALT (4-49) U/L Lipase (23-300) U/L Urine Protein Trace H (Negative) Serum Alcohol mg/dL 11/25/23 Range/Units 11:52 RBC (4.30-5.90) m/uL MCV (80.0-100.0) fL MCH (25.0-35.0) pg Plt Count (150-450) k/uL Lymphocytes # (1.0-4.8) k/uL PT (10.0-12.5) sec Creatinine 0.53 L (0.66-1.25) mg/dL Glucose 104 H (74-99) mg/dL Calcium 8.2 L (8.4-10.2) mg/dL AST 573 H (17-59) U/L ALT 162 H (4-49) U/L Lipase 1530 H (23-300) U/L Urine Protein (Negative) Serum Alcohol 316 H* mg/dL
[2023-11-25] MEDS: LACTATED RINGERS 1,000 ML IV SCH (16:45)
[2023-11-26 03:52] LABS: Basophils % (A) 0 %; Eosinophils # (A) 0.2 k/uL (0-0.7); Eosinophils % (A) 6 %; HCT 40.4 % (39.0-53.0); HGB 12.8 gm/dL (13.0-17.5); Lymphocytes # (A) 1.1 k/uL (1.0-4.8); Lymphocytes % (A) 32 %; MCH 33.6 pg (25.0-35.0); MCHC 31.7 g/dL (31.0-37.0); Macrocytosis Moderate; Monocytes # (A) 0.2 k/uL (0-1.0); Monocytes % (A) 7 %; Neutrophils # (A) 1.9 k/uL (1.3-7.7); Neutrophils % (A) 53 %; RBC 3.81 m/uL (4.30-5.90); WBC 3.5 k/uL (3.8-10.6)
[2023-11-26 04:09] LABS: ALT 152 U/L (4-49); AST 380 U/L (17-59); African American GFR (CKD) >90 (>60 ml/min/1.73 sqM); Albumin 3.6 g/dL (3.5-5.0); Alkaline Phosphatase 73 U/L (38-126); Anion Gap 3 mmol/L; Blood Urea Nitrogen 9 mg/dL (9-20); Calcium 8.6 mg/dL (8.4-10.2); Carbon Dioxide 30 mmol/L (22-30); Chloride 100 mmol/L (98-107); Globulin 1.8 g/dL; Glucose 82 mg/dL (74-99); Magnesium 1.4 mg/dL (1.6-2.3); Non-African American GFR(CKD) >90 (>60 ml/min/1.73 sqM); Potassium 4.2 mmol/L (3.5-5.1); Sodium 133 mmol/L (137-145); Total Bilirubin 1.5 mg/dL (0.2-1.3); Total Protein 5.4 g/dL (6.3-8.2)
[2023-11-26] MEDS: MAGNESIUM SULFATE-D5W PMX 1 GM in DEXTROSE/WATER 1 100ML.BAG IVPB SCH ×2 (04:29→10:01)
[2023-11-26 04:54] LABS: Platelet Count 86 k/uL (150-450)
[2023-11-26] MEDS: PANTOPRAZOLE 40 MG/10 ML VIAL IV SCH (08:22)
[2023-11-26] MEDS: ENOXAPARIN 40 MG/0.4 ML SYRINGE SQ SCH (10:18)
[2023-11-26] MEDS: THIAMINE 100 MG TAB PO SCH (10:18)
[2023-11-26] MEDS: FOLIC ACID 1 MG TAB PO SCH (10:18)
[2023-11-26] MEDS: MULTIVITAMINS, THERA 1 EACH TAB PO SCH (10:18)
[2023-11-26 11:49] VITALS: BMI 20.5
--- NOTE | 2023-11-26 15:38 | P.PN ---
Subjective Progress Note Date: 11/26/23 Principal diagnosis: I reviewed the documentation as provided by the MERRITT above, who is the original author of this note. 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 He presented to the emergency department from [place] with a chief complaint of abdominal pain and alcohol intoxication with feeling of impending withdrawal. Patient reports abdominal pain to epigastric region accompanied by nausea and vomiting. He reports history of severe DTs and alcohol withdrawal seizures with last drink of alcohol being this morning, but states drinking at least 24 beers and a fifth of liquor daily every day for at least the last 4 months. Patient reports it has been over 4 months since the last time he went 24 hours without alcohol. Denies having any fevers, chills, diaphoresis, chest pain, palpitations, shortness of breath, cough or congestion, hematemesis, or experiencing any difficulties with or changes in his urinary or bowel function. Upon arrival to our facility, patient underwent evaluation in the emergency department. Vital signs upon arrival show blood pressure 134/117, heart rate 101, respiratory rate 18, temp 98.7 F, and SpO2 of 97% on room air. Labs were completed and reviewed. CBC showing macrocytosis with MCV of 103.5 and MCH of 35.3 and thrombocytopenia with platelet count of 112,000. Coagulation profile showing low PT of 9.8 otherwise normal findings. BMP unremarkable. Blood glucose 104. Liver profile showing bilirubin of 0.7, AST of 573, ALT of 162, and alkaline phosphatase of 87. Amylase normal findings at 83 and lipase was elevated at 1530. CT abdomen and pelvis was completed showing hepatic steatosis with dilated intrahepatic and extrahepatic biliary duct dilation with tapering into the pancreatic head and no CT evidence for pancreatic inflammatory changes with no surrounding organized fluid collections. Patient being admitted under our services for alcohol intoxication pending withdraw, acute alcoholic hepatitis, and acute alcoholic pancreatitis. Physical exam: Vital signs reviewed and stable. General: Nontoxic, no distress and appears stated age. Derm: Skin warm and dry, normal coloration for ethnicity. Head: Atraumatic, normocephalic and symmetric. Eyes: EOMs intact, no lid lag, and anicteric sclera Mouth: no lip lesions, mucus membranes moist Cardiovascular: regular rate and rhythm with normal S1S2, no murmur, positive posterior tibial pulses bilaterally, and cap refill < 2 seconds. Lungs: Respirations even, regular, and unlabored on room air. Lungs CTA bilaterally, no rhonchi, no rales, no wheezing, and no accessory muscle usage. Abdominal: soft, tenderness reported upon palpation to epigastric region, no tenderness reported to right upper quadrant, no guarding, no appreciable organomegaly Ext: ROM intact. No gross muscle atrophy, no edema, no contractures Neuro: Speech clear, face symmetrical and CN II-XII grossly intact with no noted focal neuro deficits. Mild resting tremors noted. Psych: Alert and oriented to person, place, time, and situation. Appropriate and pleasant affect. Assessment and Plan of Care: Alcoholic hepatitis Alcohol intoxication in active alcoholic Acute alcoholic pancreatitis Hepatic steatosis with intrahepatic and extrahepatic biliary duct dilation tapering into the pancreatic head Substance abuse with reports of daily excessive kratom abuse Hypomagnesemia Transaminitis, secondary to daily alcohol abuse Macrocytosis, secondary to daily alcohol abuse Pancytopenia, secondary to daily alcohol abuse -Continue monitoring of CIWA scores and patient to be medicated with Ativan 0.5 mg every 4 hours as needed for CIWA score of 4-5, Ativan 1 mg every 4 hours for CIWA score of 6-7, Ativan 2 mg every 3 hours CIWA score of 8-9, and Ativan 2 mg every 2 hours forr CIWA score of 10 or greater. Patient also started on scheduled Librium 25 mg 4 times daily in addition to CIWA protocol. -MRCP scheduled to be completed at 3 PM -Continuous IV hydration with Lactated Ringer's at 125 cc/h. -Compazine 10 mg IVP every 6 hours as needed for nausea/vomiting -Toradol 15 mg IVP every 6 hours as needed for mild to moderate pain and morphine 4 mg every 4 hours as needed for severe pain. -Thiamine 100 mg daily, and Multivitamin daily, and Folate 1 mg daily -Seizure, fall, aspiration, and elopement precautions in place. -Continued close monitoring of electrolytes and replace as needed. -Repeat morning CMP to follow-up on elevated liver enzymes, monitor for improvement -Telemetry monitoring. Data and imaging reviewed: Morning labs completed and reviewed. CBC showing pancytopenia with WBC count of 3.5, hemoglobin 12.8, and platelet count of 86. BMP showing mild hyponatre giovanny with sodium of 133. Magnesium was low at 1.4 and orders placed for replacement with 3 g magnesium sulfate IVPB. Liver profile showing hyperbilirubinemia with total bili of 1.5, AST of 380, ALT of 152, and alk phos of 73. Vital signs reviewed. Blood pressure 117/70, heart rate 59, respiratory rate 15, temp 98.0 F, and SpO2 of 93% on room air. Patient has had a total of 10 mg of Ativan over the last 24 hours for symptom triggered benzodiazepine management of alcohol withdraw. CODE STATUS: Full code DVT prophylaxis: Lovenox Anticipated discharge date: Pending clinical course Anticipated discharge place: Home/return to [place] Patient was seen independently by Nurse Practitioner. This document was prepared using [employer] dictation software. Please allow for errors in treasury consultant while rare they do occur. Objective - Vital Signs Vital signs: Vital Signs Temp 98.3 F 11/26/23 08:09 Pulse 65 11/26/23 08:09 Resp 14 11/26/23 08:09 BP 128/74 11/26/23 08:09 Pulse Ox 93 L 11/26/23 07:37 FiO2 Intake & Output 11/25/23 11/26/23 11/26/23 18:59 06:59 18:59 Intake Total 590 Output Total 400 Balance 190 Weight 61.235 kg Intake: Oral 590 Output: Urine 400 Other: Voiding Method Toilet Urinal # Voids 1 2 - Labs CBC & Chem 7: 11/29/23 05:47 11/29/23 05:47 Labs: Abnormal Lab Results - Last 24 Hours (Table) 11/25/23 11/25/23 11/25/23 Range/Units 11:52 11:52 11:52 WBC (3.8-10.6) k/uL RBC 4.27 L (4.30-5.90) m/uL Hgb (13.0-17.5) gm/dL MCV 103.5 H (80.0-100.0) fL MCH 35.3 H (25.0-35.0) pg Plt Count 112 L (150-450) k/uL Lymphocytes # 0.8 L (1.0-4.8) k/uL PT 9.8 L (10.0-12.5) sec Sodium (137-145) mmol/L Creatinine (0.66-1.25) mg/dL Glucose (74-99) mg/dL Calcium (8.4-10.2) mg/dL Magnesium (1.6-2.3) mg/dL Total Bilirubin (0.2-1.3) mg/dL AST (17-59) U/L ALT (4-49) U/L Total Protein (6.3-8.2) g/dL Lipase (23-300) U/L Urine Protein Trace H (Negative) Serum Alcohol mg/dL 11/25/23 11/26/23 11/26/23 Range/Units 11:52 03:15 03:15 WBC 3.5 L (3.8-10.6) k/uL RBC 3.81 L (4.30-5.90) m/uL Hgb 12.8 L (13.0-17.5) gm/dL MCV 106.0 H (80.0-100.0) fL MCH (25.0-35.0) pg Plt Count 86 L (150-450) k/uL Lymphocytes # (1.0-4.8) k/uL PT (10.0-12.5) sec Sodium 133 L (137-145) mmol/L Creatinine 0.53 L 0.55 L (0.66-1.25) mg/dL Glucose 104 H (74-99) mg/dL Calcium 8.2 L (8.4-10.2) mg/dL Magnesium 1.4 L (1.6-2.3) mg/dL Total Bilirubin 1.5 H (0.2-1.3) mg/dL AST 573 H 380 H (17-59) U/L ALT 162 H 152 H (4-49) U/L Total Protein 5.4 L (6.3-8.2) g/dL Lipase 1530 H (23-300) U/L Urine Protein (Negative) Serum Alcohol 316 H* mg/dL
[2023-11-26] MEDS: chlordiazePOXIDE 25 MG CAP PO SCH ×2 (16:44→22:06)
[2023-11-27] MEDS: KETOROLAC 15 MG/ML 1 ML VIAL IVP PRN (04:23)
--- NOTE | 2023-11-27 08:57 | MR ---
EXAMINATION TYPE: MR MRCP DATE OF EXAM: 11/26/2023 4:19 PM CLINICAL INDICATION:Male, 43 years old with history of concerns of intrahepatic extrahepatic dilati on; PHH, Pancreatitis, evaluate for intrahepatic and extrahepatic dilation. COMPARISON: 11/25/2023 TECHNIQUE: Multi planar, T2-weighted imaging with and without fat saturation and chemical shift imag ing was performed of the abdomen. Then, heavily T2 weighted imaging (half-Fourier acquisition single- shot turbo spin-echo) was utilized in order to study the biliary system. Maximum intensity projectio n images were reconstructed from the original data of the biliary tree. 3D images were created on [employer] work station. No Gadolinium given. FINDINGS: Lower Thorax: No evidence for acute process. MRCP: * The intrahepatic ducts dilated centrally. * The extrahepatic ducts are dilated. No filling defects identified. * The common hepatic duct measures 22 mm in size. * The common bile duct at the level of the pancreatic head measures 13 mm in size. * The pancreatic duct is normal. * The gallbladder appears distended. No evidence for cholelithiasis. Abdomen: Liver: No evidence for hepatic steatosis or cirrhosis. Pancreas: No ductal dilation. No evidence for solid mass. Spleen: Normal for size. Adrenal glands: Unremarkable. Kidneys: No evidence for obstructive uropathy. No suspicious renal masses. Stomach and Bowel: No evidence for bowel wall thickening or evidence for obstruction. Retroperitoneum/Peritoneum: No evidence of pneumoperitoneum or free fluid. Vasculature: No aortic aneurysm. Musculoskeletal: The osseous structures appear intact. Lymph Nodes: No gross evidence for lymphadenopathy. Abdominal wall: Unremarkable. IMPRESSION: Dilation of the extrahepatic and central intrahepatic biliary system without evidence for filling def ect to suggest choledocholithiasis. Consider ERCP to rule out ampullary lesion.
[2023-11-27 10:22] LABS: HCT 41.9 % (39.6-50.0); HGB 14.6 g/dL (13.0-17.0); MCH 34.4 pg (27.0-32.0); MCHC 34.8 g/dL (32.0-37.0); MCV 98.8 FL (80.0-97.0); Mean Platelet Volume 11.4 FL (9.5-12.2); NRBC Per 100 WBC 0 X 10*3/uL (0.00-0.01); Platelet Count 93 X 10*3/uL (140-440); RBC 4.24 X 10*6/uL (4.40-5.60); WBC 3.99 X 10*3/uL (4.50-10.00)
[2023-11-27 10:28] LABS: ALT 121 U/L (10-49); AST 134 U/L (14-35); Albumin 4.2 g/dL (3.8-4.9); Albumin/Globulin Ratio 2.62 Ratio (1.60-3.17); Alkaline Phosphatase 96 U/L (41-126); Blood Urea Nitrogen 4.9 mg/dL (9.0-27.0); Calcium 8.9 mg/dL (8.7-10.3); Chloride 101 mmol/L (96-109); Globulin 1.6 g/dL (1.6-3.3); Glucose 110 mg/dL (70-110); Magnesium 1.9 mg/dL (1.5-2.4); Potassium 3.8 mmol/L (3.5-5.5); Sodium 139 mmol/L (135-145); Total Protein 5.8 g/dL (6.2-8.2)
--- NOTE | 2023-11-27 15:57 | P.PN ---
Subjective Progress Note Date: 11/27/23 Principal diagnosis: I reviewed the documentation as provided by the MERRITT above, who is the original author of this note. 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 He presented to the emergency department from [place] with a chief complaint of abdominal pain, nausea, and vomiting and alcohol intoxication with feeling of impending withdrawal. Upon arrival to our facility, patient underwent evaluation in the emergency department. Vital signs upon arrival show blood pressure 134/117, heart rate 101, respiratory rate 18, temp 98.7 F, and SpO2 of 97% on room air. Labs were completed and reviewed. CBC showing macrocytosis with MCV of 103.5 and MCH of 35.3 and thrombocytopenia with platelet count of 112,000. Coagulation profile showing low PT of 9.8 otherwise normal findings. BMP unremarkable. Blood glucose 104. Liver profile showing bilirubin of 0.7, AST of 573, ALT of 162, and alkaline phosphatase of 87. Amylase normal findings at 83 and lipase was elevated at 1530. CT abdomen and pelvis was completed showing hepatic steatosis with dilated intrahepatic and extrahepatic biliary duct dilation with tapering into the pancreatic head and no CT evidence for pancreatic inflammatory changes with no surrounding organized fluid collections. Patient was admitted under our services for alcohol intoxication pending withdraw, acute alcoholic hepatitis, and acute alcoholic pancreatitis. MRCP was completed showing dilation of the extrahepatic and central intrahepatic biliary system without evidence for rhoda ling defect to suggest choledocholithiasis. Physical exam: Patient seen and fully evaluated at bedside this morning he reports pain is improved but remains slightly tender to epigastric region upon palpation. He is no longer having any episodes of nausea or vomiting. Vital signs reviewed and stable. General: Nontoxic, no distress and appears stated age. Derm: Skin warm and dry, normal coloration for ethnicity. Head: Atraumatic, normocephalic and symmetric. Eyes: EOMs intact, no lid lag, and anicteric sclera Mouth: no lip lesions, mucus membranes moist Cardiovascular: regular rate and rhythm with normal S1S2, no murmur, positive posterior tibial pulses bilaterally, and cap refill < 2 seconds. Lungs: Respirations even, regular, and unlabored on room air. Lungs CTA bilaterally, no rhonchi, no rales, no wheezing, and no accessory muscle usage. Abdominal: soft, tenderness reported upon palpation to epigastric region, no tenderness reported to right upper quadrant, no guarding, no appreciable organomegaly Ext: ROM intact. No gross muscle atrophy, no edema, no contractures Neuro: Speech clear, face symmetrical and CN II-XII grossly intact with no noted focal neuro deficits. Mild resting tremors noted. Psych: Alert and oriented to person, place, time, and situation. Appropriate and pleasant affect. Assessment and Plan of Care: Alcoholic hepatitis Alcohol intoxication in active alcoholic Acute alcoholic pancreatitis Hepatic steatosis with intrahepatic and extrahepatic biliary duct dilation tapering into the pancreatic head Substance abuse with reports of daily excessive kratom abuse Hypomagnesemia Transaminitis, secondary to daily alcohol abuse Macrocytosis, secondary to daily alcohol abuse Pancytopenia, secondary to daily alcohol abuse -Continue monitoring of CIWA scores and patient to be medicated with Ativan 0.5 mg every 4 hours as needed for CIWA score of 4-5, Ativan 1 mg every 4 hours for CIWA score of 6-7, Ativan 2 mg every 3 hours CIWA score of 8-9, and Ativan 2 mg every 2 hours forr CIWA score of 10 or greater. Patient also started on scheduled Librium 25 mg 4 times daily in addition to CIWA protocol. -MRCP showing dilation of the extrahepatic and central intrahepatic biliary system without evidence for filling defect to suggest choledocholithiasis. -Continuous IV hydration with Lactated Ringer's at 125 cc/h. -Compazine 10 mg IVP every 6 hours as needed for nausea/vomiting -Toradol 15 mg IVP every 6 hours as needed for mild to moderate pain and morphine 4 mg every 4 hours as needed for severe pain. -Thiamine 100 mg daily, Multivitamin daily, and Folate 1 mg daily -Seizure, fall, aspiration, and elopement precautions in place. -Continued close monitoring of electrolytes and replace as needed. -Repeat morning CMP to follow-up on elevated liver enzymes, monitor for im provement -Telemetry monitoring. Data and imaging reviewed: Morning labs completed and reviewed. CBC showing WBC count of 3.99 and platelet count of 93. BMP unremarkable. Magnesium 1.9. Liver profile showing improvement with total bili 1.0, AST of 134, ALT of 121, and alkaline phosphatase of 96. Vital signs reviewed. Blood pressure 132/69, heart rate 53, respiratory rate 15, temp 97.9 F, and SpO2 of 99% on room air. MRCP showing dilation of the extrahepatic and central intrahepatic biliary system without evidence for filling defect to suggest choledocholithiasis. CODE STATUS: Full code DVT prophylaxis: Lovenox Anticipated discharge date: Pending clinical course Anticipated discharge place: Home/return to [place] Patient was seen independently by Nurse Practitioner. This document was prepared using [employer] dictation software. Please allow for errors in principal technologist while rare they do occur. Objective - Vital Signs Vital signs: Vital Signs Temp 97.9 F 11/27/23 07:07 Pulse 53 L 11/27/23 07:07 Resp 15 11/27/23 07:07 BP 132/69 11/27/23 07:07 Pulse Ox 99 11/27/23 07:07 FiO2 Intake & Output 11/26/23 11/27/23 11/27/23 18:59 06:59 18:59 Intake Total 1200 Balance 1200 Weight 61.235 kg Intake: Oral 1200 Other: Voiding Method Toilet Toilet Urinal Urinal # Voids 10 1 - Labs CBC & Chem 7: 11/29/23 05:47 11/29/23 05:47
--- NOTE | 2023-11-28 12:01 | P.PN ---
Subjective Progress Note Date: 11/28/23 Principal diagnosis: I reviewed the documentation as provided by the MERRITT above, who is the original author of this note. 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 He presented to the emergency department from [place] with a chief complaint of abdominal pain, nausea, and vomiting and alcohol intoxication with feeling of impending withdrawal. Upon arrival to our facility, patient underwent evaluation in the emergency department. Vital signs upon arrival show blood pressure 134/117, heart rate 101, respiratory rate 18, temp 98.7 F, and SpO2 of 97% on room air. Labs were completed and reviewed. CBC showing macrocytosis with MCV of 103.5 and MCH of 35.3 and thrombocytopenia with platelet count of 112,000. Coagulation profile showing low PT of 9.8 otherwise normal findings. BMP unremarkable. Blood glucose 104. Liver profile showing bilirubin of 0.7, AST of 573, ALT of 162, and alkaline phosphatase of 87. Amylase normal findings at 83 and lipase was elevated at 1530. CT abdomen and pelvis was completed showing hepatic steatosis with dilated intrahepatic and extrahepatic biliary duct dilation with tapering into the pancreatic head and no CT evidence for pancreatic inflammatory changes with no surrounding organized fluid collections. Patient was admitted under our services for alcohol intoxication pending withdraw, acute alcoholic hepatitis, and acute alcoholic pancreatitis. MRCP was completed showing dilation of the extrahepatic and central intrahepatic biliary system without evidence for fill ing defect to suggest choledocholithiasis. Physical exam: Patient seen and fully evaluated at bedside this morning. He reports abdominal pain is improved at this time and has had no further episodes of nausea or vomiting. He is tolerating a full liquid diet. Patient is showing moderate signs of withdraw. He is diaphoretic and has moderate tremors noted. Vital signs reviewed and stable. General: Nontoxic, no distress and appears stated age. Derm: Skin warm and normal coloration for ethnicity. Head: Atraumatic, normocephalic and symmetric. Eyes: EOMs intact, no lid lag, and anicteric sclera Mouth: no lip lesions, mucus membranes moist Cardiovascular: regular rate and rhythm with normal S1S2, no murmur, positive posterior tibial pulses bilaterally, and cap refill < 2 seconds. Lungs: Respirations even, regular, and unlabored on room air. Lungs CTA bilaterally, no rhonchi, no rales, no wheezing, and no accessory muscle usage. Abdominal: soft, tenderness reported upon palpation to epigastric region, no tenderness reported to right upper quadrant, no guarding, no appreciable organomegaly Ext: ROM intact. No gross muscle atrophy, no edema, no contractures Neuro: Speech clear, face symmetrical and CN II-XII grossly intact with no noted focal neuro deficits. Moderate tremors noted.. Psych: Alert and oriented to person, place, time, and situation. Appropriate and pleasant affect. Assessment and Plan of Care: Alcoholic hepatitis Alcohol intoxication in active alcoholic Acute alcoholic pancreatitis Hepatic steatosis with intrahepatic and extrahepatic biliary duct dilation tapering into the pancreatic head Substance abuse with reports of daily excessive kratom abuse Hypomagnesemia Transaminitis, secondary to daily alcohol abuse Macrocytosis, secondary to daily alcohol abuse Pancytopenia, secondary to daily alcohol abuse -Continue monitoring of CIWA scores and patient to be medicated with Ativan 0.5 mg every 4 hours as needed for CIWA score of 4-5, Ativan 1 mg every 4 hours for CIWA score of 6-7, Ativan 2 mg every 3 hours CIWA score of 8-9, and Ativan 2 mg every 2 hours forr CIWA score of 10 or greater. Patient also started on sc heduled Librium 25 mg 4 times daily in addition to CIWA protocol. -MRCP showing dilation of the extrahepatic and central intrahepatic biliary system without evidence for filling defect to suggest choledocholithiasis. -Continuous IV hydration with Lactated Ringer's, will decrease rate to 75 cc/h. -Compazine 10 mg IVP every 6 hours as needed for nausea/vomiting -Toradol 15 mg IVP every 6 hours as needed for mild to moderate pain and morphine 4 mg every 4 hours as needed for severe pain. -Thiamine 100 mg daily, Multivitamin daily, and Folate 1 mg daily -Seizure, fall, aspiration, and elopement precautions in place. -Continued close monitoring of electrolytes and replace as needed. -Repeat morning CMP to follow-up on elevated liver enzymes, monitor for improvement -Telemetry monitoring. Data and imaging reviewed: Morning labs completed and reviewed. CBC showing WBC count of 3.99 and platelet count of 93. BMP unremarkable. Magnesium 1.9. Liver profile showing improvement with total bili 1.0, AST of 134, ALT of 121, and alkaline phosphatase of 96. Vital signs reviewed. Blood pressure 152/81, heart rate 62, respiratory rate 17, temp 97.9 F, and SpO2 100% on room air. Patient has had a total of 9 mg of Ativan in addition to scheduled Librium 25 mg 4 times daily for the past 24 hours. CODE STATUS: Full code DVT prophylaxis: Lovenox Anticipated discharge date: Pending clinical course Anticipated discharge place: Home/return to [place] Patient was seen independently by Nurse Practitioner. This document was prepared using [employer] dictation software. Please allow for errors in electric hoist operator while rare they do occur. Objective - Vital Signs Vital signs: Vital Signs Temp 97.9 F 11/28/23 07:42 Pulse 62 11/28/23 07:42 Resp 17 11/28/23 07:42 BP 152/81 11/28/23 07:42 Pulse Ox 100 11/28/23 07:42 FiO2 Intake & Output 11/27/23 11/28/23 11/28/23 18:59 06:59 18:59 Intake Total 3160 Balance 3160 Intake: Oral 3160 Other: Voiding Method Toilet Toilet Urinal Urinal # Voids 10 2 # Bowel Movements 1 1 - Labs CBC & Chem 7: 11/29/23 05:47 11/29/23 05:47 Labs: Abnormal Lab Results - Last 24 Hours (Table) 11/27/23 11/27/23 Range/Units 06:38 06:38 WBC 3.99 L (4.50-10.00) X 10*3/uL RBC 4.24 L (4.40-5.60) X 10*6/uL MCV 98.8 H (80.0-97.0) FL MCH 34.4 H (27.0-32.0) pg Plt Count 93 L (140-440) X 10*3/uL BUN 4.9 L (9.0-27.0) mg/dL BUN/Creatinine Ratio 7.00 L (12.00-20.00) Ratio AST 134 H (14-35) U/L ALT 121 H (10-49) U/L Total Protein 5.8 L (6.2-8.2) g/dL
[2023-11-28 12:11] LABS: HCT 44.8 % (39.0-53.0); HGB 14.6 gm/dL (13.0-17.5); MCH 34.2 pg (25.0-35.0); MCHC 32.5 g/dL (31.0-37.0); MCV 105.2 fL (80.0-100.0); Macrocytosis Slight; Mean Platelet Volume 8.8; Platelet Count 126 k/uL (150-450); RBC 4.25 m/uL (4.30-5.90); RDW 13.1 % (11.5-15.5); WBC 4.6 k/uL (3.8-10.6)
[2023-11-28 12:20] LABS: African American GFR (CKD) >90 (>60 ml/min/1.73 sqM); Anion Gap 3 mmol/L; Blood Urea Nitrogen 4 mg/dL (9-20); Calcium 9.5 mg/dL (8.4-10.2); Carbon Dioxide 28 mmol/L (22-30); Chloride 105 mmol/L (98-107); Globulin 2.1 g/dL; Glucose 90 mg/dL (74-99); Magnesium 1.7 mg/dL (1.6-2.3); Non-African American GFR(CKD) >90 (>60 ml/min/1.73 sqM); Potassium 3.8 mmol/L (3.5-5.1); Sodium 136 mmol/L (137-145); Total Protein 6.1 g/dL (6.3-8.2)
[2023-11-28 12:21] LABS: ALT 124 U/L (4-49); AST 141 U/L (17-59); Albumin/Globulin Ratio 1.9; Alkaline Phosphatase 68 U/L (38-126); Total Bilirubin 0.8 mg/dL (0.2-1.3)
[2023-11-28] MEDS: MAGNESIUM SULFATE-D5W PMX 1 GM in DEXTROSE/WATER 1 100ML.BAG IVPB SCH (13:39)
[2023-11-29 08:53] LABS: HCT 37.9 % (39.6-50.0); MCH 34.9 pg (27.0-32.0); MCHC 34.3 g/dL (32.0-37.0); MCV 101.9 FL (80.0-97.0); Mean Platelet Volume 11.4 FL (9.5-12.2); NRBC Per 100 WBC 0 X 10*3/uL (0.00-0.01); Platelet Count 105 X 10*3/uL (140-440); RBC 3.72 X 10*6/uL (4.40-5.60); RDW 12.9 % (11.5-14.5); WBC 4.12 X 10*3/uL (4.50-10.00)
[2023-11-29 08:55] LABS: Magnesium 2.1 mg/dL (1.5-2.4)
[2023-11-29 08:59] LABS: ALT 132 U/L (10-49); AST 110 U/L (14-35); Albumin 3.9 g/dL (3.8-4.9); Alkaline Phosphatase 72 U/L (41-126); BUN/Creat Ratio 10.14 Ratio (12.00-20.00); Blood Urea Nitrogen 7.1 mg/dL (9.0-27.0); Calcium 8.6 mg/dL (8.7-10.3); Chloride 105 mmol/L (96-109); Globulin 1.5 g/dL (1.6-3.3); Glucose 104 mg/dL (70-110); Potassium 3.7 mmol/L (3.5-5.5); Sodium 141 mmol/L (135-145); Total Bilirubin 0.5 mg/dL (0.3-1.2); Total Protein 5.4 g/dL (6.2-8.2)
[2023-11-29] MEDS: chlordiazePOXIDE 25 MG CAP PO SCH (09:09)
--- NOTE | 2023-11-29 14:52 | P.PN ---
Subjective Progress Note Date: 11/29/23 Principal diagnosis: I reviewed the documentation as provided by the MERRITT above, who is the original author of this note. 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 He presented to the emergency department from [place] with a chief complaint of abdominal pain, nausea, and vomiting and alcohol intoxication with feeling of impending withdrawal. Upon arrival to our facility, patient underwent evaluation in the emergency department. Vital signs upon arrival show blood pressure 134/117, heart rate 101, respiratory rate 18, temp 98.7 F, and SpO2 of 97% on room air. Labs were completed and reviewed. CBC showing macrocytosis with MCV of 103.5 and MCH of 35.3 and thrombocytopenia with platelet count of 112,000. Coagulation profile showing low PT of 9.8 otherwise normal findings. BMP unremarkable. Blood glucose 104. Liver profile showing bilirubin of 0.7, AST of 573, ALT of 162, and alkaline phosphatase of 87. Amylase normal findings at 83 and lipase was elevated at 1530. CT abdomen and pelvis was completed showing hepatic steatosis with dilated intrahepatic and extrahepatic biliary duct dilation with tapering into the pancreatic head and no CT evidence for pancreatic inflammatory changes with no surrounding organized fluid collections. Patient was admitted under our services for alcohol intoxication pending withdraw, acute alcoholic hepatitis, and acute alcoholic pancreatitis. MRCP was completed showing dilation of the extrahepatic and central intrahepatic biliary system without evidence for fill ing defect to suggest choledocholithiasis. Physical exam: Patient seen and fully evaluated at bedside this morning. He reports abdominal pain is improved at this time and has had no further episodes of nausea or vomiting. He is tolerating a full liquid diet. Patient is showing moderate signs of withdraw. He is diaphoretic and has moderate tremors noted. Vital signs reviewed and stable. General: Nontoxic, no distress and appears stated age. Derm: Skin warm and normal coloration for ethnicity. Mild diaphoresis. Head: Atraumatic, normocephalic and symmetric. Eyes: EOMs intact, no lid lag, and anicteric sclera Mouth: no lip lesions, mucus membranes moist Cardiovascular: regular rate and rhythm with normal S1S2, no murmur, positive posterior tibial pulses bilaterally, and cap refill < 2 seconds. Lungs: Respirations even, regular, and unlabored on room air. Lungs CTA bilaterally, no rhonchi, no rales, no wheezing, and no accessory muscle usage. Abdominal: soft, nontender upon palpation, no guarding, no appreciable organomegaly Ext: ROM intact. No gross muscle atrophy, no edema, no contractures Neuro: Speech clear, face symmetrical and CN II-XII grossly intact with no noted focal neuro deficits. Mild tremors noted.. Psych: Alert and oriented to person, place, time, and situation. Appropriate and pleasant affect. Assessment and Plan of Care: Alcoholic hepatitis Alcohol intoxication in active alcoholic Acute alcoholic pancreatitis Hepatic steatosis with intrahepatic and extrahepatic biliary duct dilation tapering into the pancreatic head Substance abuse with reports of daily excessive kratom abuse Hypomagnesemia Transaminitis, secondary to daily alcohol abuse Macrocytosis, secondary to daily alcohol abuse Pancytopenia, secondary to daily alcohol abuse -Continue monitoring of CIWA scores and patient to be medicated with Ativan 0.5 mg every 4 hours as needed for CIWA score of 4-5, Ativan 1 mg every 4 hours for CIWA score of 6-7, Ativan 2 mg every 3 hours CIWA score of 8-9, and Ativan 2 mg every 2 hours forr CIWA score of 10 or greater. -Ativan requirements decreasing from previous 10 mg daily now down to 6 mg over the past 24 hours. Will decrease Librium to 25 mg twice daily and continue to wean off benzodiazepines as patient tolerates. -MRCP revealed dilation of the extrahepatic and central intrahepatic biliary system without evidence for filling defect to suggest choledocholithiasis. -Continuous IV hydration with Lactated Ringer's, will decrease rate to 75 cc/h. -Compazine 10 mg IVP every 6 hours as needed for nausea/vomiting -Toradol 15 mg IVP every 6 hours as needed for mild to moderate pain and morphine 4 mg every 4 hours as needed for severe pain. -Thiamine 100 mg daily, Multivitamin daily, and Folate 1 mg daily -Seizure, fall, aspiration, and elopement precautions in place. -Continued close monitoring of electrolytes and replace as needed. -Repeat morning CMP to follow-up on elevated liver enzymes, monitor for improvement -Telemetry monitoring. Data and imaging reviewed: Morning labs completed and reviewed. CBC showing bicytopenia with WBC count of 4.12 and platelet count of 105 with macrocytosis with MCV of 101.9. BMP unremarkable. Magnesium 2.1. Liver profile showing continued improvement with AST of 110 and ALT of 132. Vital signs reviewed. Blood pressure 125/69, heart rate 66, respiratory rate 16, temp 98.6 F, and SpO2 100% on room air. Patient has had a total of 6 mg of Ativan in addition to scheduled Librium 25 mg 4 times daily for the past 24 hours. CODE STATUS: Full code DVT prophylaxis: Lovenox Anticipated discharge date: Pending clinical course Anticipated discharge place: Home/return to [place] Patient was seen independently by Nurse Practitioner. This document was prepared using [employer] dictation software. Please allow for errors in assayer while rare they do occur. Objective - Vital Signs Vital signs: Vital Signs Temp 98.6 F 11/29/23 07:19 Pulse 66 11/29/23 07:19 Resp 16 11/29/23 07:19 BP 125/69 11/29/23 07:19 Pulse Ox 100 11/29/23 07:19 FiO2 Intake & Output 11/28/23 11/29/23 11/29/23 18:59 06:59 18:59 Intake Total 900 Balance 900 Intake: Intake, IV Titration 900 Amount Lactated Ringers 1,000 ml 900 @ 75 mls/hr IV .[id number] [facility] Rx#:[id number] Other: Voiding Method Toilet Toilet Urinal Urinal # Voids 1 # Bowel Movements 0 - Labs CBC & Chem 7: 11/29/23 05:47 11/29/23 05:47 Labs: Abnormal Lab Results - Last 24 Hours (Table) 11/28/23 11/28/23 11/29/23 Range/Units 11:45 11:45 05:47 WBC 4.12 L (4.50-10.00) X 10*3/uL RBC 4.25 L 3.72 L (4.30-5.90) m/uL Hct 37.9 L (39.6-50.0) % MCV 105.2 H 101.9 H (80.0-100.0) fL MCH 34.9 H (27.0-32.0) pg Plt Count 126 L 105 L (150-450) k/uL Sodium 136 L (137-145) mmol/L BUN 4 L (9-20) mg/dL Creatinine 0.53 L (0.66-1.25) mg/dL BUN/Creatinine Ratio (12.00-20.00) Ratio Calcium (8.7-10.3) mg/dL AST 141 H (17-59) U/L ALT 124 H (4-49) U/L Total Protein 6.1 L (6.3-8.2) g/dL Globulin (1.6-3.3) g/dL 11/29/23 Range/Units 05:47 WBC (4.50-10.00) X 10*3/uL RBC (4.30-5.90) m/uL Hct (39.6-50.0) % MCV (80.0-100.0) fL MCH (27.0-32.0) pg Plt Count (150-450) k/uL Sodium (137-145) mmol/L BUN 7.1 L (9-20) mg/dL Creatinine (0.66-1.25) mg/dL BUN/Creatinine Ratio 10.14 L (12.00-20.00) Ratio Calcium 8.6 L (8.7-10.3) mg/dL AST 110 H (17-59) U/L ALT 132 H (4-49) U/L Total Protein 5.4 L (6.3-8.2) g/dL Globulin 1.5 L (1.6-3.3) g/dL
[2023-11-29] MEDS: LORazepam 1 MG TAB PO PRN (22:33)
[2023-11-30 08:47] LABS: HCT 35.2 % (39.6-50.0); HGB 11.9 g/dL (13.0-17.0); MCH 34.6 pg (27.0-32.0); MCHC 33.8 g/dL (32.0-37.0); MCV 102.3 FL (80.0-97.0); Mean Platelet Volume 11.1 FL (9.5-12.2); NRBC Per 100 WBC 0 X 10*3/uL (0.00-0.01); Platelet Count 111 X 10*3/uL (140-440); RBC 3.44 X 10*6/uL (4.40-5.60); WBC 4.43 X 10*3/uL (4.50-10.00)
[2023-11-30 09:03] LABS: ALT 112 U/L (10-49); AST 71 U/L (14-35); Albumin 3.7 g/dL (3.8-4.9); Albumin/Globulin Ratio 2.64 Ratio (1.60-3.17); Alkaline Phosphatase 65 U/L (41-126); BUN/Creat Ratio 10.71 Ratio (12.00-20.00); Blood Urea Nitrogen 7.5 mg/dL (9.0-27.0); Calcium 8.3 mg/dL (8.7-10.3); Carbon Dioxide 27.1 mmol/L (21.6-31.8); Chloride 106 mmol/L (96-109); Globulin 1.4 g/dL (1.6-3.3); Glucose 95 mg/dL (70-110); Potassium 3.6 mmol/L (3.5-5.5); Sodium 142 mmol/L (135-145); Total Bilirubin 0.3 mg/dL (0.3-1.2); Total Protein 5.1 g/dL (6.2-8.2)
--- NOTE | 2023-11-30 16:05 | P.PN ---
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 He presented to the emergency department from [place] with a chief complaint of abdominal pain, nausea, and vomiting and alcohol intoxication with feeling of impending withdrawal. Upon arrival to our facility, patient underwent evaluation in the emergency department. Vital signs upon arrival show blood pressure 134/117, heart rate 101, respiratory rate 18, temp 98.7 F, and SpO2 of 97% on room air. Labs were completed and reviewed. CBC showing macrocytosis with MCV of 103.5 and MCH of 35.3 and thrombocytopenia with platelet count of 112,000. Coagulation profile showing low PT of 9.8 otherwise normal findings. BMP unremarkable. Blood glucose 104. Liver profile showing bilirubin of 0.7, AST of 573, ALT of 162, and alkaline phosphatase of 87. Amylase normal findings at 83 and lipase was elevated at 1530. CT abdomen and pelvis was completed showing hepatic steatosis with dilated intrahepatic and extrahepatic biliary duct dilation with tapering into the pancreatic head and no CT evidence for pancreatic inflammatory changes with no surrounding organized fluid collections. Patient was admitted under our services for alcohol intoxication pending withdraw, acute alcoholic hepatitis, and acute alcoholic pancreatitis. MRCP was completed showing dilation of the extrahepatic and central intrahepatic biliary system without evidence for filling defect to suggest choledocholithiasis. Physical exam: Patient seen and fully evaluated at bedside this morning. He reports abdominal pain is improved at this time and has had no further episodes of nausea or vomiting. He is tolerating a full liquid diet. Patient is showing moderate signs of withdraw. He is diaphoretic and has moderate tremors noted. Vital signs reviewed and stable. General: Nontoxic, no distress and appears stated age. Derm: Skin warm and normal coloration for ethnicity. Mild diaphoresis. Head: Atraumatic, normocephalic and symmetric. Eyes: EOMs intact, no lid lag, and anicteric sclera Mouth: no lip lesions, mucus membranes moist Cardiovascular: regular rate and rhythm with normal S1S2, no murmur, positive posterior tibial pulses bilaterally, and cap refill < 2 seconds. Lungs: Respirations even, regular, and unlabored on room air. Lungs CTA bilaterally, no rhonchi, no rales, no wheezing, and no accessory muscle usage. Abdominal: soft, nontender upon palpation, no guarding, no appreciable organomegaly Ext: ROM intact. No gross muscle atrophy, no edema, no contractures Neuro: Speech clear, face symmetrical and CN II-XII grossly intact with no noted focal neuro deficits. Mild tremors noted.. Psych: Alert and oriented to person, place, time, and situation. Appropriate and pleasant affect. Assessment and Plan of Care: Alcoholic hepatitis Alcohol intoxication in active alcoholic Acute alcoholic pancreatitis Hepatic steatosis with intrahepatic and extrahepatic biliary duct dilation tapering into the pancreatic head Substance abuse with reports of daily excessive kratom abuse Hypomagnesemia Transaminitis, secondary to daily alcohol abuse Macrocytosis, secondary to daily alcohol abuse Pancytopenia, secondary to daily alcohol abuse -Continue monitoring of CIWA scores and patient to be medicated with Ativan 0.5 mg every 4 hours as needed for CIWA score of 4-5, Ativan 1 mg every 4 hours for CIWA score of 6-7, Ativan 2 mg every 3 hours CIWA score of 8-9, and Ativan 2 mg every 2 hours forr CIWA score of 10 or greater. -Ativan requirements decreasing down to 6 mg over the past 24 hours along with Librium to 25 mg twice daily. Librium being tapered down to once daily this morning. -MRCP revealed dilation of the extrahepatic and central intrahepatic biliary sys tem without evidence for filling defect to suggest choledocholithiasis. -Tolerating regular diet, will discontinue IV fluids at this time. -Compazine 10 mg IVP every 6 hours as needed for nausea/vomiting -Toradol 15 mg IVP every 6 hours as needed for mild to moderate pain and morphine 4 mg every 4 hours as needed for severe pain. -Thiamine 100 mg daily, Multivitamin daily, and Folate 1 mg daily -Seizure, fall, aspiration, and elopement precautions in place. -Continued close monitoring of electrolytes and replace as needed. -Repeat morning CMP to follow-up on elevated liver enzymes, monitor for improvement -Telemetry monitoring. Data and imaging reviewed: Morning labs completed and reviewed. CBC showing pancytopenia with WBC count of 4.43, hemoglobin 11.9, platelet count of 111,000. BMP unremarkable. Magnesium 2.0. Liver profile showing continued improvement with AST of 71, ALT of 112, and alkaline phosphatase of 65. Vital signs reviewed. Blood pressure 124/70, heart rate 55, respiratory 16, temp 97.8 F, and SpO2 of 99% on room air. Patient has had a total of 6 mg of Ativan in addition to scheduled Librium 25 mg BID for the past 24 hours. CODE STATUS: Full code DVT prophylaxis: Lovenox Anticipated discharge date: Pending clinical course, if patient continues to show improvement over the next 24 hours we will plan for likely discharge tomorrow morning Anticipated discharge place: Home/return to [place] Patient was seen independently by Nurse Practitioner. This document was prepared using [employer] dictation software. Please allow for errors in intensivist while rare they do occur. Khalif Spence NP rendered care for this patient independently, reviewed the findi ngs and plan as documented in the note above. I did not physically speak with or examine the patient on this date. Objective - Vital Signs Vital signs: Vital Signs Temp 97.8 F 11/30/23 07:15 Pulse 55 L 11/30/23 07:15 Resp 16 11/30/23 07:15 BP 124/70 11/30/23 07:15 Pulse Ox 99 11/30/23 07:15 FiO2 Intake & Output 11/29/23 11/30/23 11/30/23 18:59 06:59 18:59 Other: Voiding Method Toilet Urinal # Voids 2 1 - Labs CBC & Chem 7: 11/30/23 04:59 11/30/23 04:59 Labs: Abnormal Lab Results - Last 24 Hours (Table) 11/29/23 11/29/23 Range/Units 05:47 05:47 WBC 4.12 L (4.50-10.00) X 10*3/uL RBC 3.72 L (4.40-5.60) X 10*6/uL Hct 37.9 L (39.6-50.0) % MCV 101.9 H (80.0-97.0) FL MCH 34.9 H (27.0-32.0) pg Plt Count 105 L (140-440) X 10*3/uL BUN 7.1 L (9.0-27.0) mg/dL BUN/Creatinine Ratio 10.14 L (12.00-20.00) Ratio Calcium 8.6 L (8.7-10.3) mg/dL AST 110 H (14-35) U/L ALT 132 H (10-49) U/L Total Protein 5.4 L (6.2-8.2) g/dL Globulin 1.5 L (1.6-3.3) g/dL
[2023-12-01 07:28] VITALS: BP 115/66; PULSE 64; RESP 16; TEMP 97.7
--- NOTE | 2023-12-01 09:44 | P.DS ---
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 He presented to the emergency department from [facility] with a chief complaint of abdominal pain, nausea, and vomiting and alcohol intoxication with feeling of impending withdrawal. Upon arrival to our facility, patient underwent evaluation in the emergency department. Vital signs upon arrival show blood pressure 134/117, heart rate 101, respiratory rate 18, temp 98.7 F, and SpO2 of 97% on room air. Labs were completed and reviewed. CBC showing macrocytosis with MCV of 103.5 and MCH of 35.3 and thrombocytopenia with platelet count of 112,000. Coagulation profile showing low PT of 9.8 otherwise normal findings. BMP unremarkable. Blood glucose 104. Liver profile showing bilirubin of 0.7, AST of 573, ALT of 162, and alkaline phosphatase of 87. Amylase normal findings at 83 and lipase was elevated at 1530. CT abdomen and pelvis was completed showing hepatic steatosis with dilated intrahepatic and extrahepatic biliary duct dilation with tapering into the pancreatic head and no CT evidence for pancreatic inflammatory changes with no surrounding organized fluid collections. Patient was admitted under our services for alcohol intoxication pending withdraw, acute alcoholic hepatitis, and acute alcoholic pancreatitis. MRCP was completed showing dilation of the extrahepatic and central intrahepatic biliary system without evidence for filling defect to suggest choledocholithiasis. Patient had full resolution of abdominal pain/discomfort. He underwent successful medical detox and appears to be doing well. He is ambulating in halls and free from any complaints at this time. Patient being discharged at this time states that he is ready to go and was strongly advised to stay away from any and all alcohol. Patient reports he has made an appointment with [facility] and plans to return there to complete his detox and therapy. Patient is medically stable at this time and is being discharged home with his . Patient to follow-up outpatient with PCP in 1 to 2 days. Appointment was made with his PCP for 12/04/2023 at 11:30 AM. Physical exam: Vital signs reviewed and stable. General: Nontoxic, no distress and appears stated age. Derm: Skin warm, dry and normal coloration for ethnicity. Head: Atraumatic, normocephalic and symmetric. Eyes: EOMs intact, no lid lag, and anicteric sclera Mouth: no lip lesions, mucus membranes moist Cardiovascular: regular rate and rhythm with normal S1S2, no murmur, positive posterior tibial pulses bilaterally, and cap refill < 2 seconds. Lungs: Respirations even, regular, and unlabored on room air. Lungs CTA bilaterally, no rhonchi, no rales, no wheezing, and no accessory muscle usage. Abdominal: soft, nontender upon palpation, no guarding, no appreciable organomegaly Ext: ROM intact. No gross muscle atrophy, no edema, no contractures Neuro: Speech clear, face symmetrical and CN II-XII grossly intact with no noted focal neuro deficits. No tremors noted.. Psych: Alert and oriented to person, place, time, and situation. Appropriate and pleasant affect. A total of 34 minutes of time were spent preparing this complex discharge summary. Pt was discharged on 12/01/2023 at 9:43 AM. Patient was seen independently by Nurse Practitioner. This document was prepared using [employer] dictation software. Please allow for errors in beauty counselor while rare they do occur. Khalif Spence NP rendered care for this patient independently, reviewed the findings and plan as documented in the note above. I did not physically speak with or examine the patient on this date. Patient Condition at Discharge: Stable Plan - Discharge Summary Discharge Rx Participant: No New Discharge Prescriptions: New Thiamine [Vitamin B-1] 100 mg PO DAILY 30 Days #30 tab Folic Acid 1 mg PO DAILY 30 Days #30 tab Multivitamins, Thera [Multivitamin (formulary)] 1 each PO DAILY 30 Days #30 tab Discharge Medication List Folic Acid 1 mg PO DAILY 30 Days #30 tab 12/01/23 [Rx] Multivitamins, Thera [Multivitamin (formulary)] 1 each PO DAILY 30 Days #30 tab 12/01/23 [Rx] Thiamine [Vitamin B-1] 100 mg PO DAILY 30 Days #30 tab 12/01/23 [Rx] Follow up Appointment(s)/Referral(s): Martínez Alva MD [Primary Care Provider] - 12/04/23 11:30 am Patient Instructions/Handouts: Thiamine (By mouth), Folic Acid (By mouth), Multivitamins, Adult Formula (By mouth), Pancreatitis (DC), Abuse of Alcohol (DC), Alcohol Withdrawal (DC) Activity/Diet/Wound Care/Special Instructions: Activity: As tolerated. Diet: Regular diet. Special Instructions: As we discussed, it is strongly recommended to avoid any and all alcohol use including situations/events or alcohol will be. Truly wish you the best of luck on your journey towards sobriety. Thank you for allowing us to participate in your care, it was truly a pleasure having you for our patient!!! . Discharge/Stand Alone Forms: AA Meetings [facility], Community Resources, Outpatient Counseling, In Substance Abuse Facilities Discharge Disposition: HOME SELF-CARE
== END 2023-12-01 11:05 | disposition home or self-care (01) | DRG 432 ==
LOC: EC 11:38 → 5NMEDONC 14:36
PROVIDERS: ADMIT Family Medicine; ATTEND Family Medicine
DX: K70.10 Alcoholic hepatitis without ascites (principal); K85.20 Alcohol induced acute pancreatitis without necrosis or infection; F10.231 Alcohol dependence with withdrawal delirium; D61.818 Other pancytopenia; F10.229 Alcohol dependence with intoxication, unspecified; F19.10 Other psychoactive substance abuse, uncomplicated; K76.0 Fatty (change of) liver, not elsewhere classified; Z28.310 Unvaccinated for COVID-19; D75.89 Other specified diseases of blood and blood-forming organs; E83.42 Hypomagnesemia; F41.9 Anxiety disorder, unspecified
CPT/HCPCS: 36415; 74177; 74181; 80053; 80320; 81003; 82150; 83690; 83735; 85025; 85027; 85610; 85730; 93005; 96361; 96372; 96374; 96375; 96376; 99285